=== PATIENT | female | born 1965 | race Caucasian/White ===

== ENCOUNTER 2019-05-25 05:02 | Emergency (ER) | payer BC ==
[~2019-05-25] VITALS: Ht 175.3 cm; Wt 71.0 kg
[~2019-05-25 05:02] MED LIST: NO HOME MEDS
[2019-05-25] MEDS ORDERED: ketorolac tromethamine 15mg/ml inj. IV ONE (07:15)
[2019-05-25] MEDS ORDERED: morphine 4 MG/ML inj SYRINge IV ONE ×2 (07:15→08:20)
[2019-05-25] MEDS ORDERED: ondansetron/PF 4mg/2ml inj IV ONE (07:15)
[2019-05-25] MEDS ORDERED: cyclobenzaprine 10mg tablet PO ONE (07:15)
[2019-05-25] MEDS ORDERED: HYDR-3965 PO (08:22)
[2019-05-25] MEDS ORDERED: CYCL-1 PO (08:22)
[2019-05-25] MEDS ORDERED: mag hydrox/Alum hydrox/simeth 30ml oral suspension PO ONE (08:40)
[2019-05-25] MEDS ORDERED: LIDOcaine Viscous 15ml cup PO ONE (08:40)
--- NOTE | 2019-05-25 08:57 | NUR ---
PT C/O EPIGASTRIC PAIN AND RIB PAIN. COMPLETE EKG AND ADMIN MEDICATIONS ORDER. PT STATES SHE STILL HAS PAIN IN DIAPHRAM AREA. FAMILY AT BEDSIDE. PT HAS HANDS ON DIARPHRAM.
[2019-05-25 10:04] VITALS: BP 106/57
--- NOTE | 2019-05-25 10:04 | NUR ---
PT STATES HER PAIN IS BETTER NOW 04/09. DC IV. AT BEDSIDE FOR RIDE HOME. ASSIST PT OUT TO CAR VIA W/C.
== END 2019-05-25 10:07 | disposition home or self-care (01) ==
LOC: ER 05:02
DX: S33.5XXA Sprain of ligaments of lumbar spine, initial encounter (principal); R07.89 Other chest pain; Z79.899 Other long term (current) drug therapy; X50.1XXA Overexertion from prolonged static or awkward postures, initial encounter; Y93.89 Activity, other specified; Y92.89 Other specified places as the place of occurrence of the external cause; Y99.8 Other external cause status
CPT/HCPCS: 93005; 96374; 96375; 96376; 99283; J1885; J2270; J2405